=== PATIENT | female | born 1985 | race Caucasian/White ===

== ENCOUNTER 2021-11-17 13:52 | Emergency (ER) | payer OTHER, SELFPAY ==
[2021-11-17 14:37] VITALS: BP 128/78; PULSE 106; RESP 16; TEMP 36.6; O2SAT 100; BMI 26.6
--- NOTE | 2021-11-17 14:49 | HMH.EDUTC ---
[facility] Disposition Clinical Impression: COVID-19 Asthma Qualifiers: Asthma severity: severe Asthma persistence: persistent Asthma complication type: unspecified Qualified Code(s): J45.50 - Severe persistent asthma, uncomplicated Disposition: Home, Self-Care Condition on Discharge: Good Instructions: DI for COVID-19 (Suspected or Confirmed ), Preventing the Spread of Coronavirus Discharge Instructions Additional Instructions: Drink plenty of fluids. Take tylenol or ibuprofen for pain or fever. Take the medications as directed. Follow up with your regular doctor. GO TO THE ER FOR ANY WORSENING SYMPTOMS Quarantine, the health department should call you and give you further instructions about your length of Quarantine and other things. Notify your school or workplace of your results and follow their instructions regarding return to work/school. Don't start the oral steroids until tomorrow, since you had the shot here today. The cough medication (promethazine dm) will make you drowsy, so don't drive or operate heavy machinery after taking it. Prescriptions: Promethazine/Dextromethorphan [Promethazine-Dm Syrup] 5 ml PO Q6HP PRN #240 ml PRN Reason: Cough Transmission Status: Received by [facility] #[id number] dexAMETHasone [Decadron] 6 mg PO DAILY 6 Days #6 tab Transmission Status: Received by [facility] #[id number] Azithromycin [Z-Ismael 250mg Tab*] 250 mg PO UD DOSE PK #6 tab Transmission Status: Received by [facility] #[id number] Referrals: Provider,Referral, MD [Primary Care Provider] - Time of Disposition: 16:31 Medical Decision Making - Medical Records Medical records reviewed: No: I reviewed the patient's medical records. - [place] Inquiry Pt receiving controlled substance: No Vital Signs: 11/17/21 14:37 11/17/21 17:22 Temperature 97.9 F 97.9 F Temperature Source Oral Pulse Rate 106 H Pulse Rate [Left] 106 H Respiratory Rate 16 16 Blood Pressure 128/78 Blood Pressure [Right Arm] 128/78 Blood Pressure Mean [Right Arm] 94 02 Sat by Pulse Oximetry 100 Orders (Tests/Meds): ED MEDICATIONS Discontinued Medications Generic Name Dose Route Start Last Admin Trade Name Freq PRN Reason Stop Dose Admin Methylprednisolone Sodium Succinate 125 mg 11/17/21 16:34 11/17/21 17:21 Methylprednisolone Sod Succ 125mg Vial IM 11/17/21 16:35 125 mg ONCE ONE Administration - Radiology Data #1 Image(s): Chest Image Reviewed: Yes I reviewed the patient's radiology image, Yes I have reviewed radiologist's interpretation Preliminary Findings: Abnormal PROCEDURE INFORMATION: Exam: XR Chest Exam date and time: 11/17/2021 3:03 PM Age: 36 years old Clinical indication: Pain; Cough and shortness of breath; Patient HX: Cough, SOA, chest tightness, asthma, PT states took at home covid test and was positive; Additional info: Cough, congestion TECHNIQUE: Imaging protocol: XR of the chest. Views: 2 views. COMPARISON: No relevant prior studies available. FINDINGS: Airway: Patent Lungs: Subtle linear/hazy opacifications in the right infrahilar region. Remainder of the lungs are clear. Pleural spaces: Unremarkable. No pleural effusion. No pneumothorax. Heart/Mediastinum: Unremarkable. No cardiomegaly. Bones/joints: No acute skeletal abnormality or aggressive osseous lesion. IMPRESSION: 1. IN THIS PATIENT WITH A POSITIVE HISTORY OF COVID-19, RIGHT INFRAHILAR FINDINGS ARE QUESTIONABLE FOR EARLY DEVELOPING COVID-19 PNEUMONIA. NEVERTHELESS, THE LUNGS ARE ESSENTIALLY CLEAR AT THIS TIME. FOLLOW-UP CLINICALLY WARRANTED. 2. NO OTHER ACUTE THORACIC PATHOLOGY IS IDENTIFIED. [facility] HPI - General Stated complaint: chest tightness, sinus pressure Time Seen by Provider: 11/17/21 14:49 Mode of Arrival: Ambulatory Source of Information: Patient Limitations: No Limitations [place]
--- NOTE | 2021-11-17 15:03 | XR_ITS ---
PROCEDURE INFORMATION: Exam: XR Chest Exam date and time: 11/17/2021 3:03 PM Age: 36 years old Clinical indication: Pain; Cough and shortness of breath; Patient HX: Cough, SOA, chest tightness, asthma, PT states took at home covid test and was positive; Additional info: Cough, congestion TECHNIQUE: Imaging protocol: XR of the chest. Views: 2 views. COMPARISON: No relevant prior studies available. FINDINGS: Airway: Patent Lungs: Subtle linear/hazy opacifications in the right infrahilar region. Remainder of the lungs are clear. Pleural spaces: Unremarkable. No pleural effusion. No pneumothorax. Heart/Mediastinum: Unremarkable. No cardiomegaly. Bones/joints: No acute skeletal abnormality or aggressive osseous lesion. IMPRESSION: 1. IN THIS PATIENT WITH A POSITIVE HISTORY OF COVID-19, RIGHT INFRAHILAR FINDINGS ARE QUESTIONABLE FOR EARLY DEVELOPING COVID-19 PNEUMONIA. NEVERTHELESS, THE LUNGS ARE ESSENTIALLY CLEAR AT THIS TIME. FOLLOW-UP CLINICALLY WARRANTED. 2. NO OTHER ACUTE THORACIC PATHOLOGY IS IDENTIFIED.
[2021-11-17 17:22] VITALS: BP 128/78; PULSE 106; RESP 16; TEMP 36.6
--- NOTE | 2021-11-18 18:46 | PC.NURSE ---
patient notified of positive results at this time
== END 2021-11-17 17:29 | disposition home or self-care (01) ==
PROVIDERS: Emergency Provider Nurse Practitioner Family
DX: U07.1 COVID-19 (principal); J45.50 Severe persistent asthma, uncomplicated
CPT/HCPCS: 71046; 90471; 99202; C9803; G0463; U0003; U0005

== ENCOUNTER 2021-11-20 07:48 | Outpatient (CLI) | payer OTHER, SELFPAY ==
[2021-11-20] VITALS (9 sets, daily range): BP systolic 109–127; BP diastolic 61–75; PULSE 52–64; RESP 18; TEMP 36.6–36.8; O2SAT 97–100
== END 2021-11-20 11:31 | disposition home or self-care (01) ==
LOC: COVID.OUT 07:49
PROVIDERS: PCP Nurse Practitioner Family; Visit Provider Nurse Practitioner Family
DX: U07.1 COVID-19 (principal); Z23 Encounter for immunization
CPT/HCPCS: 96365